=== PATIENT | female | born 1990 | race Caucasian/White ===

== ENCOUNTER 2024-02-02 18:37 | Emergency (ER) | payer OTHER, SELFPAY ==
[2024-02-02 18:38] VITALS: BP 145/82; PULSE 114; RESP 16; TEMP 36.4; O2SAT 99; BMI 34.0
[2024-02-02] MEDS: Naproxen 500 MG Tablet PO (19:14)
--- NOTE | 2024-02-02 19:19 | EDS_ITS ---
HPI History of Present Illness Chief Complaint: Upper Extremity Injury Detail of Chief Complaint: Left shoulder pain and limited use Informant: patient Occured/Mechanism Mechanism/Context: Yes other see comment below Comment: Pushed herself up. [place] a pop and complains of pain left shoulder Onset/Context/Timing Onset: Days (3 days ago) Context: Sudden Onset Timing: Continuous and Waxes and wanes Quality of Pain: Dull and Aching Location: Left shoulder region Current Severity: Mild Maximum Severity: Moderate Worsened by: Lifting her arm up especially abduction Relieved by: Nothing Associated Symptoms Associated Symptoms: Positive for Loss of Funtion (Due to pain); Negative for Parasthesia or Weakness Narrative Narrative: Patient is a 33-year-old female who is right-handed. She was pushing herself up 3 days ago. She felt a pop in the shoulder. She has had pain since. She has had limited range of motion. She prefers to have her left upper extremity internally rotated and held against her chest. She denies paresthesia, anesthesia or motor weakness. She states prior to this popping sensation she has had intermittent clicking sensation. She denies prior problems with the left shoulder. She denies cardiac or respiratory symptoms. She denies neck pain. She has no contraindication to NSAIDs i.e. hypertension, diabetes, peptic ulcer disease or renal disease. Prior similar symptoms: No Recent Illness/Hospitalization: No [facility] Medical History Cartilage disorder Home Medications ?Medication ?Instructions ?Recorded ?Last Taken ?Type naproxen 500 mg tablet 500 mg PO BID #14 tabs 02/02/24 Unknown Rx Allergy/AdvReac Type Severity Reaction Status Date / Time amoxicillin Allergy Severe Anaphylaxis Verified 02/02/24 18:39 Penicillins Allergy Severe Anaphylaxis Verified 02/02/24 18:39 Sulfa (Sulfonamide Allergy Severe Anaphylaxis Verified 02/02/24 18:39 Antibiotics) Social History (Updated 02/02/24 @ 19:[address] Iraj Terry MD) household members: spouse Smoking Status: Never smoker ROS ROS ED Constitutional Constitutional ED: Denies chills, fever(s), subjective, sweats or weight loss Cardiovascular Cardiovascular: Denies chest pain, palpitations or racing heartbeat Respiratory/Chest Respiratory/Chest: Denies cough, dyspnea or dyspnea on exertion Gastrointestinal Gastrointestinal: Denies nausea or vomiting Musculoskeletal Musculoskeletal: Reports other Details: Per HPI Integumentary Denies Abrasions or rash Neurologic Neurologic: Denies paresthesias or weakness Hematologic/Lymphatic Hematologic/Lymphatic: Denies easy bleeding or easy bruising EXAM Physical Exam Const Vital Signs: 02/02/24 18:38 Temperature 97.5 F L Temperature Source Temporal Pulse Rate 114 H Respiratory Rate 16 Blood Pressure 145/82 H Blood Pressure Mean 103 Pulse Ox 99 Oxygen Delivery Method Room Air Positive well nourished and well developed Constitutional Narrative: BMI 34. She is holding her arm internally rotated and against her chest for comfort. General Appearance ED: well developed; Negative for NAD HEENT normocephalic and atraumatic Eyes PERRL and EOMs intact bilaterally Neck full ROM Chest Wall palpation of chest normal Resp normal respiratory effort and clear to auscultation bilaterally Cardio regular rate, regular rhythm, S1 normal heart sound, S2 normal heart sound and no murmurs Back/Spine Cervical Spine: Negative for cervical spine tenderness Thoracic Spine / Upper Back: Negative for thoracic spinal tenderness Extremity normal to inspection Extremity Narrative: Patient will not abduct paced 90 degrees. Passive abduction past 90 degrees causes her significant discomfort. Axillary, median, radial and ulnar function intact. Radial pulses 2+. Bicep, brachialis and tricep reflex are 2+ and symmetric. Neuro oriented x3, CN's II-XII intact bilaterally, moves all extremities, no focal motor deficits and no sensory deficits noted Sensorium / Orientation: alert Motor Exam: strength 5/5 throughout Psych mental status grossly normal Skin Lesions: no lesions Rashes: no rashes Trauma: no lacerations or abrasions MDM MDM MDM Narrative Medical decision making narrative: Suspect patient has impingement syndrome. Will obtain x-ray to assess for calcification is of the supraspinatus tendon versus degenerative changes of the shoulder since she report clicking prior to this popping sensation and discomfort to the point where she is reluctant to move her left upper extremity at the shoulder. She has no pain the patient of the lateral medial epicondyle, lateral process or radial head. Has no pain the patient over the distal radius ulna, carpal bones or metacarpal bones. Patient was medicated with NSAIDs and she has no contraindication. Radiography Chest X-Ray - ED: Read by ED Physician (Three-view x-ray left shoulder reveals no evidence of calcification of the supraspinatus tendon. There is no osteoarthritic changes. There is no evidence of fracture, subluxation or dislocation per my independent review at 2.) Discharge Plan Triage Chief Complaint: Upper Extremity Injury ED Provider: Iraj Terry Dx/Rx/DC Orders Clinical Impression: Impingement syndrome of left shoulder, Elevated blood-pressure reading without diagnosis of hypertension Instructions: ED Hypertension, To Be Confirmed, ED Shoulder Impingement Syndrome Prescriptions: New naproxen 500 mg tablet 500 mg PO BID Qty: 14 0RF Primary Care Provider: Care Physician,No Primary Referrals: Mary Balderrama MD [Med Staff - [employer]] - 1 Week if not improving Care Physician,No Primary [Primary Care Provider] - Print Language: Amharic Disposition Disposition: Home, Self Care
--- NOTE | 2024-02-02 19:25 | RAD_ITS ---
INDICATION: Trauma, left shoulder injury with pain EXAMINATION/TECHNIQUE: X-RAY - LEFT XR Shoulder Min 2 Views 4 VIEWS COMPARISON: None. FINDINGS: SOFT TISSUES: No soft tissue swelling or gas. No radiopaque foreign body. BONES/JOINTS: No acute fracture. Joint spaces anatomically aligned. No sclerotic or destructive changes observed. RAD/Shoulder min 2 Views IMPRESSION: Unremarkable study. Electronically Signed: Juarez Shabazz MD at 20:04 EDT ,
[2024-02-02 19:59] VITALS: BP 131/78; PULSE 74; RESP 16; TEMP 36.7; O2SAT 99
== END 2024-02-02 20:01 | disposition home or self-care (01) ==
PROVIDERS: Emergency Provider Emergency Medicine; Visit Provider Emergency Medicine
DX: M25.812 Other specified joint disorders, left shoulder (principal); X58.XXXA Exposure to other specified factors, initial encounter; R03.0 Elevated blood-pressure reading, without diagnosis of hypertension
CPT/HCPCS: 73030; 99282